=== PATIENT | female | born 1985 | race Two or more races ===

== ENCOUNTER → 2024-07-23 | Outpatient (CLI) | payer BC, SELFPAY ==
[2024-07-23 17:06] LABS: Misc Send Out* See Sep Rpt
[2024-07-23 17:55] LABS: Thyroid Stimulating Hormone 1.75 uIU/mL (0.55-4.78)
== END | disposition home or self-care (01) ==
LOC: COPL 15:57
PROVIDERS: PCP Family Medicine; Referring Provider Family Medicine; Visit Provider Family Medicine
DX: E66.9 Obesity, unspecified (principal)
CPT/HCPCS: 36415; 82530; 82533; 84443

== ENCOUNTER → 2025-07-17 | Outpatient (CLI) | payer BC, SELFPAY ==
[2025-07-17 14:11] LABS: Collection Type, Urine Clean Catch
[2025-07-17 16:39] LABS: Bacteria,Urine Rare; Bilirubin,Urine Negative (Negative); Blood,Urine 1+ (Negative); Clarity,Urine Clear (Clear/Hazy); Color,Urine Lt-Yellow (Lt Yel-Yel); Glucose, Urine Negative (Negative); Ketones,Urine Negative (Negative); Leukocyte Esterase,Urine Positive (Negative); Nitrite,Urine Negative (Negative); PH,Urine 5.5 (5.0-7.0); Protein,Urine Negative (Neg - Trace); RBC,Urine 4 /hpf (0-3); Specific Gravity,Urine 1.024 (1.001-1.035); Squamous Epithelial Cell,Urine 10 /hpf (0-5); Urobilinogen,Urine Negative mg/dL (0.0-1.0); WBC,Urine 9 /hpf (0-5)
== END | disposition home or self-care (01) ==
LOC: SLDO 14:00
PROVIDERS: PCP Family Medicine; Referring Provider Registered Nurse; Visit Provider Registered Nurse
DX: N39.0 Urinary tract infection, site not specified (principal)
CPT/HCPCS: 81001; 87086